=== PATIENT | female | born 1975 | race Caucasian/White ===

== ENCOUNTER → 2025-05-11 09:01 | Outpatient (REF) | payer OTHER, SELFPAY | LOC: RAD 09:01 | PROVIDERS: ATTENDING PHYSICIAN Internal Medicine | DX: E04.9 Nontoxic goiter, unspecified (principal) | CPT/HCPCS: 76536 ==

== ENCOUNTER → 2025-06-23 07:35 | Outpatient (REF) | payer OTHER, SELFPAY ==
[2025-06-23 07:54] VITALS: BP 136/87; BP_SYST 63
== END ==
LOC: RADI 07:35
PROVIDERS: ATTENDING PHYSICIAN Internal Medicine
DX: E04.1 Nontoxic single thyroid nodule (principal)
CPT/HCPCS: 10005; 88173